=== PATIENT | male | born 1985 | race Caucasian/White ===

== ENCOUNTER 2025-01-03 12:50 | Inpatient (IN) | payer OTHER ==
[~2025-01-03] VITALS: Ht 182.9 cm; Wt 57.5 kg
[2025-01-03 13:41] LABS: BASO # 0.0 10^3/uL (0.0-0.2); BASO % 0.1 % (0.0-1.0); EOS # 0.0 10^3/uL (0.0-0.5); EOS % 0.3 % (0.0-3.0); LYMPH # 0.7 10^3/uL (1.5-5.0); LYMPH % 10.7 % (24.0-44.0); MONO # 0.8 10^3/uL (0.0-0.8); MONO % 10.9 % (2.0-8.0); NEUTROPHILS # 5.4 10^3/uL (1.5-8.5); NEUTROPHILS % 77.9 % (36.0-66.0); PLATELET COUNT, AUTOMATED 190 10^3/uL (150-450)
[2025-01-03 14:11] LABS: ETHYL ALCOHOL (ETHANOL) 0.003 % (0.000-0.010)
[2025-01-03 14:13] LABS: ALT/SGPT 27 U/L (7.0-40); AST/SGOT 33 U/L (<34); CALCIUM LEVEL 9.7 MG/DL (8.5-10.1); CARBON DIOXIDE LEVEL 29 MMOL/L (20-31); CHLORIDE LEVEL 102 MMOL/L (98-107); CREATININE FOR GFR 0.74 MG/DL (0.70-1.30); GLOMERULAR FILTRATION RATE > 90.0 (>60); POTASSIUM SERUM 4.4 MMOL/L (3.5-5.1); SODIUM LEVEL 140 MMOL/L (136-145)
[2025-01-03] MEDS ORDERED: ISOVUE-370 76% 100 ML VIAL As Ordered ONE (15:09)
[2025-01-03] MEDS: ONDANSETRON 4MG/2ML VIAL IV ONE (17:07)
[2025-01-03] MEDS: MORPHINE 4 MG/ML 1 ML VIAL IV PRN ×3 (17:07→23:45)
[2025-01-03] MEDS ORDERED: NS (Normal Saline) 0.9% 1,000 ML IV ONE (20:00)
[2025-01-03] MEDS: NS (Normal Saline) 0.9% 1,000 ML IV ONE (20:01)
[2025-01-03] MEDS: PANTOPRAZOLE 40MG VIAL IV SCH (20:04)
[2025-01-03] MEDS: KETOROLAC 30 MG/ML 1 ML VIAL IV SCH (20:04)
[2025-01-03] MEDS ORDERED: THIAMINE 100 MG TAB PO SCH (21:00)
[2025-01-03 21:56] VITALS: BP 147/83
[2025-01-03] MEDS: LR 1,000 ML IV SCH (22:00)
[2025-01-03 22:03] VITALS: BP 147/83; TEMP 98.8; O2SAT 100
[2025-01-03] MEDS: MULTIVITAMIN -ADULT INJECTION 10 ML, THIAMINE INJection 100 MG, FOLIC ACID 1 MG in NS (... IV ONE (22:11)
[2025-01-04 04:08] VITALS: BP 105/67; TEMP 98.4; O2SAT 97
[2025-01-04 04:09] VITALS: BP 105/67
[2025-01-04 06:39] LABS: BASO # 0.0 10^3/uL (0.0-0.2); BASO % 0.4 % (0.0-1.0); EOS # 0.1 10^3/uL (0.0-0.5); EOS % 1.8 % (0.0-3.0); LYMPH # 1.1 10^3/uL (1.5-5.0); LYMPH % 21.1 % (24.0-44.0); MONO # 0.7 10^3/uL (0.0-0.8); MONO % 13.1 % (2.0-8.0); NEUTROPHILS # 3.2 10^3/uL (1.5-8.5); NEUTROPHILS % 63.4 % (36.0-66.0); PLATELET COUNT, AUTOMATED 128 10^3/uL (150-450)
[2025-01-04 06:54] LABS: CALCIUM LEVEL 8.0 MG/DL (8.5-10.1); CARBON DIOXIDE LEVEL 29 MMOL/L (20-31); CHLORIDE LEVEL 109 MMOL/L (98-107); CREATININE FOR GFR 0.70 MG/DL (0.70-1.30); GLOMERULAR FILTRATION RATE > 90.0 (>60); POTASSIUM SERUM 4.0 MMOL/L (3.5-5.1); SODIUM LEVEL 145 MMOL/L (136-145)
[2025-01-04 07:25] LABS: HIV 1&2 SCREEN NEGATIVE (NEGATIVE)
[2025-01-04] MEDS: ENOXAPARIN 40 MG/0.4 ML SYRINGE (J1650 PER 10MG) SC SCH (08:15)
[2025-01-04] MEDS: MULTIVITAMINS/MINERALS THERAP 1 TAB PO SCH (08:17)
[2025-01-04] MEDS: FOLIC ACID 1 MG TAB PO SCH (08:17)
[2025-01-04] MEDS: THIAMINE 100 MG TAB PO SCH (08:17)
[2025-01-04] MEDS ORDERED: IBUP200T46 PO (08:38)
[2025-01-04] MEDS ORDERED: ACET1TAB55 PO (08:38)
[2025-01-04] MEDS ORDERED: VITA1TAB82 PO (08:38)
[2025-01-04] MEDS ORDERED: HOME MED LIST COMPLETE! XX SCH (08:40)
[2025-01-04 08:51] LABS: HEPATITIS C VIRUS ABY INDEX > 11.00 INDEX (<0.8)
[2025-01-04] MEDS: NICOTINE 21 MG/24 HR 1 EA TRANSDERMAL TD SCH (11:12)
[2025-01-04 12:27] VITALS: BP 105/71; TEMP 98.6; O2SAT 99
[2025-01-04 12:30] VITALS: BP 105/71
[2025-01-04 19:57] VITALS: BP 131/83; TEMP 98.8; O2SAT 98
[2025-01-04 20:00] VITALS: BP 131/83
[2025-01-04] MEDS: traZODone 25MG PER 1/2 TABLET PO ONE (22:09)
[2025-01-05 05:30] VITALS: BP 119/83; TEMP 98.8; O2SAT 98
[2025-01-05 05:37] VITALS: BP 119/83
[2025-01-05 06:26] LABS: BASO # 0.0 10^3/uL (0.0-0.2); BASO % 0.6 % (0.0-1.0); EOS # 0.2 10^3/uL (0.0-0.5); EOS % 3.2 % (0.0-3.0); LYMPH # 1.3 10^3/uL (1.5-5.0); LYMPH % 27.1 % (24.0-44.0); MONO # 0.6 10^3/uL (0.0-0.8); MONO % 11.8 % (2.0-8.0); NEUTROPHILS # 2.7 10^3/uL (1.5-8.5); NEUTROPHILS % 57.1 % (36.0-66.0); PLATELET COUNT, AUTOMATED 108 10^3/uL (150-450)
[2025-01-05 06:51] LABS: CALCIUM LEVEL 7.9 MG/DL (8.5-10.1); CARBON DIOXIDE LEVEL 28 MMOL/L (20-31); CHLORIDE LEVEL 110 MMOL/L (98-107); CREATININE FOR GFR 0.68 MG/DL (0.70-1.30); GLOMERULAR FILTRATION RATE > 90.0 (>60); POTASSIUM SERUM 3.5 MMOL/L (3.5-5.1); SODIUM LEVEL 146 MMOL/L (136-145)
[2025-01-05 12:00] VITALS: BP 123/78; TEMP 98.8; O2SAT 99
[2025-01-05 12:41] VITALS: BP 123/78
[2025-01-05 20:18] VITALS: BP 145/94; TEMP 98.1; O2SAT 97
[2025-01-05] MEDS: traZODone 25MG PER 1/2 TABLET PO PRN (23:39)
[2025-01-06 04:31] VITALS: BP 133/88; TEMP 98.1; O2SAT 97
[2025-01-06 04:32] VITALS: BP 133/88
[2025-01-06 06:36] LABS: BASO # 0.1 10^3/uL (0.0-0.2); BASO % 1.3 % (0.0-1.0); EOS # 0.2 10^3/uL (0.0-0.5); EOS % 4.6 % (0.0-3.0); LYMPH # 1.4 10^3/uL (1.5-5.0); LYMPH % 29.3 % (24.0-44.0); MONO # 0.5 10^3/uL (0.0-0.8); MONO % 10.9 % (2.0-8.0); NEUTROPHILS # 2.6 10^3/uL (1.5-8.5); NEUTROPHILS % 53.7 % (36.0-66.0); PLATELET COUNT, AUTOMATED 123 10^3/uL (150-450)
[2025-01-06 07:09] LABS: CALCIUM LEVEL 7.9 MG/DL (8.5-10.1); CARBON DIOXIDE LEVEL 30 MMOL/L (20-31); CHLORIDE LEVEL 107 MMOL/L (98-107); CREATININE FOR GFR 0.68 MG/DL (0.70-1.30); GLOMERULAR FILTRATION RATE > 90.0 (>60); POTASSIUM SERUM 3.4 MMOL/L (3.5-5.1); SODIUM LEVEL 144 MMOL/L (136-145)
[2025-01-06] MEDS: ONDANSETRON 4MG/2ML VIAL IV PRN (11:16)
[2025-01-06 12:00] VITALS: BP 129/82; TEMP 98.8; O2SAT 99
[2025-01-06 12:35] VITALS: BP 129/82
[2025-01-06 20:33] VITALS: BP 137/93; TEMP 98.8; O2SAT 99
[2025-01-06 20:34] VITALS: BP 137/93
[2025-01-06] MEDS: POTASSIUM CHLORIDE 10MEQ SR TABLET PO ONE (20:37)
[2025-01-07 01:03] LABS: HCV RNA QUANTITATION <15 NOT DETECTED IU/mL (NOT DETECTED); HCV RNA log10 <1.18 NOT DETECTED Log IU/mL (NOT DETECTED)
[2025-01-07] MEDS: MORPHINE 4 MG/ML 1 ML VIAL IV PRN (03:08)
[2025-01-07 03:12] VITALS: BP 145/96; TEMP 99; O2SAT 94
[2025-01-07 03:14] VITALS: BP 145/96
[2025-01-07 06:25] LABS: BASO # 0.1 10^3/uL (0.0-0.2); BASO % 1.1 % (0.0-1.0); EOS # 0.1 10^3/uL (0.0-0.5); EOS % 3.2 % (0.0-3.0); LYMPH # 1.3 10^3/uL (1.5-5.0); LYMPH % 30.6 % (24.0-44.0); MONO # 0.5 10^3/uL (0.0-0.8); MONO % 11.5 % (2.0-8.0); NEUTROPHILS # 2.3 10^3/uL (1.5-8.5); NEUTROPHILS % 53.4 % (36.0-66.0); PLATELET COUNT, AUTOMATED 156 10^3/uL (150-450)
[2025-01-07 06:54] LABS: CALCIUM LEVEL 8.0 MG/DL (8.5-10.1); CARBON DIOXIDE LEVEL 29 MMOL/L (20-31); CHLORIDE LEVEL 108 MMOL/L (98-107); CREATININE FOR GFR 0.62 MG/DL (0.70-1.30); GLOMERULAR FILTRATION RATE > 90.0 (>60); POTASSIUM SERUM 3.5 MMOL/L (3.5-5.1); SODIUM LEVEL 144 MMOL/L (136-145)
[2025-01-07 12:00] VITALS: BP 128/89; TEMP 99.3; O2SAT 100
[2025-01-07] MEDS ORDERED: THERTAB19 PO (13:24)
[2025-01-07] MEDS ORDERED: FOLI1TAB11 PO (13:24)
[2025-01-07] MEDS ORDERED: THIA100TA PO (13:24)
== END 2025-01-07 14:51 | disposition home or self-care (01) | DRG 282 ==
LOC: M ED 12:50 → M ED INP 19:02 → M MSPAV 21:49
PROVIDERS: ADMIT Internal Medicine Nephrology; ATTEND Internal Medicine
DX: K85.20 Alcohol induced acute pancreatitis without necrosis or infection (principal); F32.A Depression, unspecified; R19.7 Diarrhea, unspecified; K21.9 Gastro-esophageal reflux disease without esophagitis; F10.10 Alcohol abuse, uncomplicated; F12.90 Cannabis use, unspecified, uncomplicated; F17.290 Nicotine dependence, other tobacco product, uncomplicated